=== PATIENT | male | born 1990 | race Caucasian/White ===

== ENCOUNTER 2016-11-23 15:16 | Emergency (ER) | payer OTHER ==
[2016-11-23] MEDS ORDERED: KETOROLAC 30 MG/ML VIAL (J1885) As Ordered ONE (17:15)
--- NOTE | 2016-11-23 18:30 | REPUSA ---
CLINICAL HISTORY: pain. TECHNIQUE: Realtime sonographic images were obtained in multiple projections through bilateral inguin al areas. COMMENTS: There is no evidence of inguinal hernia on the right or left. There is no soft tisse mass or fluid collection noted. IMPRESSION: There is no evidence of inguinal hernia on the right or left. Thank you for your kind referral of this patient.
--- NOTE | 2016-11-23 18:50 | REPUSA ---
CLINICAL HISTORY: Rule out torsion. TECHNIQUE: Realtime sonographic images were obtained in multiple projections. COMMENTS: Both testicles are of normal size and shape and are of homogeneous echotexture. The right testicle m easures 4.7 cm in CC x 2.36 cm in AP x 3.73 cm in transverse. The right epididymal head 12.7 mm. The left testicle measures 4.54 cm in CC x 2.61 cm in AP x 3.49 cm in transverse. Left epididymal head measures 9.5 mm. Color Doppler images reveal normal symmetrical flow to the testicles. There is no evidence for testi cular torsion. There is no evidence of varicocele or hydrocele. The right RI is 0.40, PSV 4.0, EDV 1.6. The left RI is 0.63, PSV 4.8, EDV 1.8. IMPRESSION: 1. Right epididymal cyst measuring 3.8 x 2.3 x 3.0 mm. 2. Bilateral testicles are within normal limits. No torsion. 3. Bilateral small hydrocele. Thank you for your kind referral of this patient. We appreciate the opportunity to participate in thi s patient's care.
--- NOTE | 2016-11-23 20:24 | EDDOCDS ---
Physician Documentation [facility] Name: Geovanni Nieto Age: 26 yrs Sex: Male : 1990 Arrival Date: 11/23/2016 Time: 15:16 Bed TR7 Private MD: Kwame Olivier D Disposition: 11/23/16 20:02 Discharged to Home/Self Care. Impression: Orchitis, Cyst of epididymis - RIGHT, Hydrocele, unspecified - BILATERAL. - Condition is Stable. - Discharge Instructions: Orchitis, Epidermal Cyst. - Prescriptions for Ibuprofen 600 mg Oral Tablet - take 1 tablet by ORAL route every 6 hours As needed take with food; 30 tablet. - Medication Reconciliation, Local Pharmacy Hours form. - Follow up: Sage Hassan; When: 1 week; Reason: Recheck today's complaints, Continuance of care. - Problem is new. - Symptoms have improved. - Notes: USE MOTRIN INSTRUCTED, USE SUPPORTIVE UNDER GARMENTS FOR SCROTAL SUPPORT, FOLLOW UP WITH YOUR DOCTOR OR DR HASSAN, RETURN TO THE ER IF THE SYMPTOMS WORSEN OR BECOME CONCERNING Historical: - Allergies: no known allergies; - Home Meds: 1. none - PMHx: none; - PSHx: none; - Social history: Smoking status: Patient states was never smoker of tobacco. No barriers to communication noted, The patient speaks fluent Burundian. - Family history: Not pertinent. - : The pt / caregiver states he / she is not on anticoagulants. Home medication list is obtained from the patient. - Exposure Risk Screening:: None identified. Vital Signs: 11/23 15:18 BP 114 / 63; Pulse 93; Resp 18 S; Temp 98.0(O); Pulse Ox 100% on R/A; Weight 65.77 kg / dd6 145 lbs (R); Height 5 ft. 8 in. (172.72 cm) (R); 20:06 BP 122 / 65; Pulse 83; Resp 18; Temp 97.8(T); Pulse Ox 99% on R/A; Pain 4/10; ar3 15:18 Body Mass Index 22.05 (65.77 kg, 172.72 cm) dd6 MDM: 17:09 Financial registration complete. kf3 17:14 ketorolac 60 mg IM once ordered. jk8 17:15 Scrotal, US Ordered. EDMS 17:29 [facility] Payment Agreement was scanned into [email or web address] and attached to record. kf3 17:39 Pelvis, limited US Ordered. EDMS 17:39 DUPLEX SCAN LIMITED (DOPPLER) Ordered. EDMS 18:53 ED course: PREVIOUS PROVIDER DID NOT ORDER URINALYSIS, URINE CULTURE OR GC/CHLAMYDIA ck7 PROBE. WILL ORDER AND AWAIT RESULTS TO R/O INFECTION. 18:53 UA Ordered. EDMS 18:53 Urine Culture Ordered. EDMS 18:53 GC & Chlamydia Amplification Ordered. EDMS 19:23 Scrotal, US Reviewed. ck7 19:23 Pelvis, limited US Reviewed. ck7 19:26 UA Reviewed. ck7 Administered Medications: 17:19 Drug: ketorolac 60 mg [ketorolac 30 mg/mL (1 mL) injection solution (2 mL)] Route: IM; jo3 Site: left gluteus; Signatures: Dispatcher [employer] EDMS Abelino Watsno, Cee Alanis RN, RN RN jo3 Julio Wilder, Reg Reg kf3 Alla Bower RN RN rs3 Ronald Gutierrez, RPA-C RPA-Cck7 Kyaw Neely, PA-C PA-C jk8 The chart was reviewed and I authenticate all verbal orders and agree with the evaluation and treatment provided.Corrections: (The following items were deleted from the chart) 17:39 17:14 Abdomen, limited+US ordered. EDMS EDMS Attachments: 17:29 [facility] Payment Agreement kf3 MTDD
--- NOTE | 2016-11-23 20:24 | EDDOCDS ---
Nurse's Notes [facility] Name: Geovanni Nieto Age: 26 yrs Sex: Male : 1990 Arrival Date: 11/23/2016 Time: 15:16 Bed TR7 Private MD: Kwame Olivier D Diagnosis: Orchitis;Cyst of epididymis-RIGHT;Hydrocele, unspecified-BILATERAL Presentation: 11/23 15:24 Presenting complaint: Patient states: Left testicle swelling and tenderness since rs3 yesterday. not resolved with ice application. Adult Sepsis Screening: The patient does not have new or worsening altered mentation. Patient's respiratory rate is less than 22. Systolic blood pressure is greater than 100. Patient has a qSOFA score of 0- Negative Sepsis Screen. Suicide/Homicide risk assessment- the patient denies having any suicidal and/or homicidal ideations and does not present with any other emotional, behavioral or mental health complaints. Status: Patient is not a guest services lead or dependent. Transition of care: patient was not received from another setting of care. 15:24 Acuity: EMILIO Level 3 rs3 15:24 Method Of Arrival: Walkin/Carried/Asstd rs3 Triage Assessment: 15:27 General: Appears in no apparent distress. Pain: Location: groin. Pt Declines HIV rs3 testing. Historical: - Allergies: no known allergies; - Home Meds: 1. none - PMHx: none; - PSHx: none; - Social history: Smoking status: Patient states was never smoker of tobacco. No barriers to communication noted, The patient speaks fluent Thai. - Family history: Not pertinent. - : The pt / caregiver states he / she is not on anticoagulants. Home medication list is obtained from the patient. - Exposure Risk Screening:: None identified. Screenin:19 Screening information is obtained from the patient. Fall risk: No risks identified. jo3 Assistance ADL's: requires no assistance with activities of daily living. Abuse/DV Screen: The patient / caregiver reports he/she is: not in a situation that causes fear, pain or injury. Nutritional screening: No deficits noted. Advance Directives: There is no active DNR order. home support is adequate. Assessment: 17:19 General: Appears uncomfortable, Behavior is appropriate for age, cooperative. jo3 Neurological: No deficits noted. Cardiovascular: No deficits noted. Respiratory: Airway is patent Respiratory effort is even, unlabored, Derm: Skin is pink, warm & dry. Vital Signs: 15:18 BP 114 / 63; Pulse 93; Resp 18 S; Temp 98.0(O); Pulse Ox 100% on R/A; Weight 65.77 kg dd6 (R); Height 5 ft. 8 in. (172.72 cm) (R); 20:06 BP 122 / 65; Pulse 83; Resp 18; Temp 97.8(T); Pulse Ox 99% on R/A; Pain 4/10; ar3 15:18 Body Mass Index 22.05 (65.77 kg, 172.72 cm) dd6 Vitals: 15:18 Log In Time: November 23, 2016 at 15:16. dd6 ED Course: 15:18 Patient visited by Garret aBrtholomew PCA. dd6 15:18 Kwame Olivier is Private Physician. dd6 15:18 Patient moved to Waiting dd6 15:19 Patient moved to Pre RCE dd6 15:27 Triage Initiated rs3 16:35 Patient moved to Triage 3 ar3 16:36 Patient visited by Delia Obrien RN. dls 17:08 Kyaw Neely PA-C is [facility]. jk8 17:08 Bo Larios MD is Attending Physician. jk8 17:08 Patient visited by Kyaw Neely PA-C. jk8 17:18 Patient moved to TR1 ar3 17:19 The patient / caregiver is instructed regarding the plan of care and ED course. jo3 17:20 Patient visited by Cee Baum RN. jo3 17:28 Patient name changed from Geovanni\S\W\S\Nieto\S\ to Geovanni\S\Gatica\S\Nieto. EDMS 17:29 [place] [place] was scanned into [employer] and attached to record. kf3 17:34 Patient moved to [facility] hgl 18:01 [facility] role handed off by Kyaw Neely PA-C ck7 18:01 Ronald Gutierrez RPA-C is [facility]. ck7 18:10 Patient moved to TR1 hgl 18:22 Patient visited by Ronald Gutierrez RPA-C. ck7 18:34 Scrotal, US Returned. EDMS 18:54 Patient visited by Ronald Gutierrez RPA-C. ck7 18:59 GC & Chlamydia Amplification Sent. ar3 18:59 Urine Culture Sent. ar3 18:59 UA Sent. ar3 19:18 Pelvis, limited US Returned. EDMS 19:25 Patient visited by Ronald Gutierrez RPA-C. ck7 19:54 Patient moved to rs3 20:00 Patient visited by Ronald Gutierrez RPA-C. ck7 20:02 Sage Hassan is Referral Physician. ck7 20:06 Patient visited by Liza Galindo PCA. ar3 20:21 Patient moved to [facility] ar3 20:23 No IV's were initiated during this patient's visit. No procedures done that require cz assistance. Administered Medications: 17:19 Drug: ketorolac 60 mg [ketorolac 30 mg/mL (1 mL) injection solution (2 mL)] Route: IM; jo3 Site: left gluteus; Order Results: Lab Order: UA; SPEC'M 11/23/16 18:59 Test: APPEARANCE, URINE; Value: HAZY; Range: CLEAR; Status: F Test: COLOR, URINE; Value: YELLOW; Range: YELLOW; Status: F Test: PH,URINE; Value: 7.0; Range: 5.0-9.0; Units: UNITS; Status: F Test: SPECIFIC GRAVITY URINE AUTO; Value: 1.015; Range: 1.002-1.035; Status: F Test: PROTEIN, URINE AUTO; Value: NEGATIVE; Range: NEGATIVE; Units: mg/dL; Status: F Test: GLUCOSE, URINE (UA) AUTO; Value: NEGATIVE; Range: NEGATIVE; Units: mg/dL; Status: F Test: KETONE, URINE AUTO; Value: NEGATIVE; Range: NEGATIVE; Units: mg/dL; Status: F Test: UROBILINOGEN, URINE AUTO; Value: 0.2; Range: 0.0-2.0; Units: mg/dL; Status: F Test: BILIRUBIN, URINE AUTO; Value: NEGATIVE; Range: NEGATIVE; Status: F Test: NITRITE, URINE AUTO; Value: NEGATIVE; Range: NEGATIVE; Status: F Test: LEUKOCYTE ESTERASE, URINE AUTO; Value: NEGATIVE; Range: NEGATIVE; Status: F Test: BLOOD, URINE BLOOD; Value: NEGATIVE; Range: NEGATIVE; Status: F Test: WBC, URINE AUTO; Value: 0; Range: 0-3; Units: /HPF; Status: F Test: RBC, URINE AUTO; Value: 1; Range: 0-3; Units: /HPF; Status: F Test: BACTERIA, URINE AUTO; Value: NEGATIVE; Range: NEGATIVE; Status: F Test: SQUAMOUS EPITHELIAL CELL UR AU; Value: 0; Range: 0-6; Units: /HPF; Status: F Test: SPERM, URINE AUTO; Value: SMALL; Range: NONE; Abnormal: Above high normal; Status: F Test: HYALINE CAST, URINE AUTO; Value: 0; Range: 0-1; Units: /LPF; Status: F Test: AMORPHOUS SEDIMENT; Value: SMALL; Range: NEGATIVE; Abnormal: Above high normal; Status: F Radiology Order: Scrotal, US Test: Scrotal, US REASON FOR EXAMINATION: rule out torsion.; ; CLINICAL HISTORY: pain.; TECHNIQUE: Realtime sonographic images were obtained in multiple projections through bilateral inguin; al areas.; COMMENTS:; There is no evidence of inguinal hernia on the right or left.; There is no soft tisse mass or fluid collection noted.; IMPRESSION:; There is no evidence of inguinal hernia on the right or left.; Thank you for your kind referral of this patient.; ; Radiology Order: Pelvis, limited US Test: Pelvis, limited US REASON FOR EXAMINATION: rule out INGUINAL HERNIA; ; CLINICAL HISTORY: Rule out torsion.; ; TECHNIQUE: Realtime sonographic images were obtained in multiple projections.; ; COMMENTS:; Both testicles are of normal size and shape and are of homogeneous echotexture. The right testicle m; easures 4.7 cm in CC x 2.36 cm in AP x 3.73 cm in transverse. The right epididymal head 12.7 mm. The; left testicle measures 4.54 cm in CC x 2.61 cm in AP x 3.49 cm in transverse. Left epididymal head; measures 9.5 mm.; ; Color Doppler images reveal normal symmetrical flow to the testicles. There is no evidence for testi; cular torsion. There is no evidence of varicocele or hydrocele.; ; The right RI is 0.40, PSV 4.0, EDV 1.6. The left RI is 0.63, PSV 4.8, EDV 1.8.; ; IMPRESSION:; 1. Right epididymal cyst measuring 3.8 x 2.3 x 3.0 mm.; 2. Bilateral testicles are within normal limits. No torsion.; 3. Bilateral small hydrocele.; ; Thank you for your kind referral of this patient. We appreciate the opportunity to participate in [facility]; s patient's care.; ; ; Outcome: 20:02 Discharge ordered by Provider. ck7 20:23 Discharge Assessment: Patient awake, alert and oriented x 3. No cognitive and/or cz functional deficits noted. Patient verbalized understanding of disposition instructions. patient administered narcotics - no. The following High Risk Discharge criteria are identified: None. Discharged to home ambulatory. Condition: stable. Discharge instructions given to patient, Instructed on discharge instructions, follow up and referral plans. medication usage, Demonstrated understanding of instructions, medications, Pt was receptive of discharge instructions/ teaching. Prescriptions given X 1. Ultrasound Study completed. Property :Personal belongings accompany Pt. 20:23 Patient left the ED. cz Signatures: Dispatcher [employer] EDMS Delia Obrien RN Abelino Rodney RN RN cz Helmerci, Jennifer, RN RN jo3 Julio Wilder, Reg Reg kf3 Garret Bartholomew, RAND BUTTER RAND BUTTER dd6 Alla BowerRN RN rs3 Liza Galindo, RAND BUTTER RAND BUTTER ar3 Dorota, [place] hgl Ronald Gutierrez, RPA-C RPA-Cck7 Kyaw Neely, PA-C PA-C jk8 MTDD
--- NOTE | 2016-11-25 21:24 | EDDOCDS ---
Physician Documentation [facility] Name: Geovanni Nieto Age: 26 yrs Sex: Male : 1990 Arrival Date: 11/23/2016 Time: 15:16 Bed TR7 Private MD: Kwame Olivier D Disposition: 11/23/16 20:02 Discharged to Home/Self Care. Impression: Orchitis, Cyst of epididymis - RIGHT, Hydrocele, unspecified - BILATERAL. - Condition is Stable. - Discharge Instructions: Orchitis, Epidermal Cyst. - Prescriptions for Ibuprofen 600 mg Oral Tablet - take 1 tablet by ORAL route every 6 hours As needed take with food; 30 tablet. - Medication Reconciliation, Local Pharmacy Hours form. - Follow up: Sage Hassan; When: 1 week; Reason: Recheck today's complaints, Continuance of care. - Problem is new. - Symptoms have improved. - Notes: USE MOTRIN INSTRUCTED, USE SUPPORTIVE UNDER GARMENTS FOR SCROTAL SUPPORT, FOLLOW UP WITH YOUR DOCTOR OR DR HASSAN, RETURN TO THE ER IF THE SYMPTOMS WORSEN OR BECOME CONCERNING Historical: - Allergies: no known allergies; - Home Meds: 1. none - PMHx: none; - PSHx: none; - Social history: Smoking status: Patient states was never smoker of tobacco. No barriers to communication noted, The patient speaks fluent German. - Family history: Not pertinent. - : The pt / caregiver states he / she is not on anticoagulants. Home medication list is obtained from the patient. - Exposure Risk Screening:: None identified. Vital Signs: 11/23 15:18 BP 114 / 63; Pulse 93; Resp 18 S; Temp 98.0(O); Pulse Ox 100% on R/A; Weight 65.77 kg / dd6 145 lbs (R); Height 5 ft. 8 in. (172.72 cm) (R); 20:06 BP 122 / 65; Pulse 83; Resp 18; Temp 97.8(T); Pulse Ox 99% on R/A; Pain 4/10; ar3 15:18 Body Mass Index 22.05 (65.77 kg, 172.72 cm) dd6 MDM: 17:09 Financial registration complete. kf3 17:14 ketorolac 60 mg IM once ordered. jk8 17:15 Scrotal, US Ordered. EDMS 17:29 [facility] Payment Agreement was scanned into [employer] and attached to record. kf3 17:39 Pelvis, limited US Ordered. EDMS 17:39 DUPLEX SCAN LIMITED (DOPPLER) Ordered. EDMS 18:53 ED course: PREVIOUS PROVIDER DID NOT ORDER URINALYSIS, URINE CULTURE OR GC/CHLAMYDIA ck7 PROBE. WILL ORDER AND AWAIT RESULTS TO R/O INFECTION. 18:53 UA Ordered. EDMS 18:53 Urine Culture Ordered. EDMS 18:53 GC & Chlamydia Amplification Ordered. EDMS 19:23 Scrotal, US Reviewed. ck7 19:23 Pelvis, limited US Reviewed. ck7 19:26 UA Reviewed. ck7 22:04 T-Sheet-- Draft Copy was scanned into [employer] and attached to record. klr 11/24 11:28 Radiology Report was scanned into [employer] and attached to record. gb Administered Medications: 11/23 17:19 Drug: ketorolac 60 mg [ketorolac 30 mg/mL (1 mL) injection solution (2 mL)] Route: IM; jo3 Site: left gluteus; Signatures: Dispatcher [employer] EDMS Abelino Watson, RN RN cz Ynes Meyer, Reg Reg gb Cee Baum RN RN jo3 Julio Wilder, Reg Reg kf3 Alla Bower RN RN rs3 Ronald Gutierrez, RPA-C RPA-Cck7 Kyaw Neely, PA-C PA-C jk8 Donna Silva The chart was reviewed and I authenticate all verbal orders and agree with the evaluation and treatment provided.Corrections: (The following items were deleted from the chart) 17:39 17:14 Abdomen, limited+US ordered. EDMS EDMS Attachments: 17:29 [place] [place] Payment Agreement kf3 22:04 T-Sheet-- Draft Copy klr Chart Complete MTDD
--- NOTE | 2016-11-25 21:24 | EDDOCDS ---
Physician Documentation [facility] Name: Geovanni Nieto Age: 26 yrs Sex: Male : 1990 Arrival Date: 11/23/2016 Time: 15:16 Bed TR7 Private MD: Kwame Olivier D Disposition: 11/23/16 20:02 Discharged to Home/Self Care. Impression: Orchitis, Cyst of epididymis - RIGHT, Hydrocele, unspecified - BILATERAL. - Condition is Stable. - Discharge Instructions: Orchitis, Epidermal Cyst. - Prescriptions for Ibuprofen 600 mg Oral Tablet - take 1 tablet by ORAL route every 6 hours As needed take with food; 30 tablet. - Medication Reconciliation, Local Pharmacy Hours form. - Follow up: Sage Hassan; When: 1 week; Reason: Recheck today's complaints, Continuance of care. - Problem is new. - Symptoms have improved. - Notes: USE MOTRIN INSTRUCTED, USE SUPPORTIVE UNDER GARMENTS FOR SCROTAL SUPPORT, FOLLOW UP WITH YOUR DOCTOR OR DR HASSAN, RETURN TO THE ER IF THE SYMPTOMS WORSEN OR BECOME CONCERNING Historical: - Allergies: no known allergies; - Home Meds: 1. none - PMHx: none; - PSHx: none; - Social history: Smoking status: Patient states was never smoker of tobacco. No barriers to communication noted, The patient speaks fluent Tanzanian. - Family history: Not pertinent. - : The pt / caregiver states he / she is not on anticoagulants. Home medication list is obtained from the patient. - Exposure Risk Screening:: None identified. Vital Signs: 11/23 15:18 BP 114 / 63; Pulse 93; Resp 18 S; Temp 98.0(O); Pulse Ox 100% on R/A; Weight 65.77 kg / dd6 145 lbs (R); Height 5 ft. 8 in. (172.72 cm) (R); 20:06 BP 122 / 65; Pulse 83; Resp 18; Temp 97.8(T); Pulse Ox 99% on R/A; Pain 4/10; ar3 15:18 Body Mass Index 22.05 (65.77 kg, 172.72 cm) dd6 MDM: 17:09 Financial registration complete. kf3 17:14 ketorolac 60 mg IM once ordered. jk8 17:15 Scrotal, US Ordered. EDMS 17:29 [facility] Agreement was scanned into [employer] and attached to record. kf3 17:39 Pelvis, limited US Ordered. EDMS 17:39 DUPLEX SCAN LIMITED (DOPPLER) Ordered. EDMS 18:53 ED course: PREVIOUS PROVIDER DID NOT ORDER URINALYSIS, URINE CULTURE OR GC/CHLAMYDIA ck7 PROBE. WILL ORDER AND AWAIT RESULTS TO R/O INFECTION. 18:53 UA Ordered. EDMS 18:53 Urine Culture Ordered. EDMS 18:53 GC & Chlamydia Amplification Ordered. EDMS 19:23 Scrotal, US Reviewed. ck7 19:23 Pelvis, limited US Reviewed. ck7 19:26 UA Reviewed. ck7 22:04 T-Sheet-- Draft Copy was scanned into [employer] and attached to record. klr 11/24 11:28 Radiology Report was scanned into [employer] and attached to record. gb Administered Medications: 11/23 17:19 Drug: ketorolac 60 mg [ketorolac 30 mg/mL (1 mL) injection solution (2 mL)] Route: IM; jo3 Site: left gluteus; Signatures: Dispatcher [employer] EDMS Abelino Watson, RN RN cz Ynes Meyer, Reg Reg gb Cee Baum RN RN jo3 Julio Wilder, Reg Reg kf3 Alla Bower RN RN rs3 Ronald Gutierrez, RPA-C RPA-Cck7 Kyaw Neely, PA-C PA-C jk8 Donna Silva The chart was reviewed and I authenticate all verbal orders and agree with the evaluation and treatment provided.Corrections: (The following items were deleted from the chart) 17:39 17:14 Abdomen, limited+US ordered. EDMS EDMS Attachments: 17:29 [place] [place] Agreement kf3 22:04 T-Sheet-- Draft Copy klr Chart Complete MTDD
--- NOTE | 2016-11-25 21:24 | EDDOCDS ---
Nurse's Notes [facility] Name: Geovanni Nieto Age: 26 yrs Sex: Male : 1990 Arrival Date: 11/23/2016 Time: 15:16 Bed TR7 Private MD: Kwame Olivier D Diagnosis: Orchitis;Cyst of epididymis-RIGHT;Hydrocele, unspecified-BILATERAL Presentation: 11/23 15:24 Presenting complaint: Patient states: Left testicle swelling and tenderness since rs3 yesterday. not resolved with ice application. Adult Sepsis Screening: The patient does not have new or worsening altered mentation. Patient's respiratory rate is less than 22. Systolic blood pressure is greater than 100. Patient has a qSOFA score of 0- Negative Sepsis Screen. Suicide/Homicide risk assessment- the patient denies having any suicidal and/or homicidal ideations and does not present with any other emotional, behavioral or mental health complaints. 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 Transition of care: patient was not received from another setting of care. 15:24 Acuity: EMILIO Level 3 rs3 15:24 Method Of Arrival: Walkin/Carried/Asstd rs3 Triage Assessment: 15:27 General: Appears in no apparent distress. Pain: Location: groin. Pt Declines HIV rs3 testing. Historical: - Allergies: no known allergies; - Home Meds: 1. none - PMHx: none; - PSHx: none; - Social history: Smoking status: Patient states was never smoker of tobacco. No barriers to communication noted, The patient speaks fluent Lithuanian. - Family history: Not pertinent. - : The pt / caregiver states he / she is not on anticoagulants. Home medication list is obtained from the patient. - Exposure Risk Screening:: None identified. Screenin:19 Screening information is obtained from the patient. Fall risk: No risks identified. jo3 Assistance ADL's: requires no assistance with activities of daily living. Abuse/DV Screen: The patient / caregiver reports he/she is: not in a situation that causes fear, pain or injury. Nutritional screening: No deficits noted. Advance Directives: There is no active DNR order. home support is adequate. Assessment: 17:19 General: Appears uncomfortable, Behavior is appropriate for age, cooperative. jo3 Neurological: No deficits noted. Cardiovascular: No deficits noted. Respiratory: Airway is patent Respiratory effort is even, unlabored, Derm: Skin is pink, warm & dry. Vital Signs: 15:18 BP 114 / 63; Pulse 93; Resp 18 S; Temp 98.0(O); Pulse Ox 100% on R/A; Weight 65.77 kg dd6 (R); Height 5 ft. 8 in. (172.72 cm) (R); 20:06 BP 122 / 65; Pulse 83; Resp 18; Temp 97.8(T); Pulse Ox 99% on R/A; Pain 4/10; ar3 15:18 Body Mass Index 22.05 (65.77 kg, 172.72 cm) dd6 Vitals: 15:18 Log In Time: November 23, 2016 at 15:16. dd6 ED Course: 15:18 Patient visited by Garret Bartholomew PCA. dd6 15:18 Kwame Olivier is Private Physician. dd6 15:18 Patient moved to Waiting dd6 15:19 Patient moved to Pre RCE dd6 15:27 Triage Initiated rs3 16:35 Patient moved to Triage 3 ar3 16:36 Patient visited by Delia Obrien RN. dls 17:08 Kyaw Neely PA-C is [facility]. jk8 17:08 Bo Larios MD is Attending Physician. jk8 17:08 Patient visited by Kyaw Neely PA-C. jk8 17:18 Patient moved to TR1 ar3 17:19 The patient / caregiver is instructed regarding the plan of care and ED course. jo3 17:20 Patient visited by Cee Baum RN. jo3 17:28 Patient name changed from Geovanni\S\W\S\Nieto\S\ to Geovanni\S\Gatica\S\Nieto. EDMS 17:29 [facility] Payment Agreement was scanned into [employer] and attached to record. kf3 17:34 Patient moved to [facility] hgl 18:01 [facility] role handed off by Kyaw Neely PA-C ck7 18:01 Ronald Gutierrez RPA-C is [facility]. ck7 18:10 Patient moved to TR1 hgl 18:22 Patient visited by Ronald Gutierrez RPA-C. ck7 18:34 Scrotal, US Returned. EDMS 18:54 Patient visited by Ronald Gutierrez RPA-C. ck7 18:59 GC & Chlamydia Amplification Sent. ar3 18:59 Urine Culture Sent. ar3 18:59 UA Sent. ar3 19:18 Pelvis, limited US Returned. EDMS 19:25 Patient visited by Ronald Gutierrez RPA-C. ck7 19:54 Patient moved to PR rs3 20:00 Patient visited by Ronald Gutierrez RPA-C. ck7 20:02 Sage Hassan is Referral Physician. ck7 20:06 Patient visited by Liza Galindo PCA. ar3 20:21 Patient moved to [facility] ar3 20:23 No IV's were initiated during this patient's visit. No procedures done that require cz assistance. 22:04 T-Sheet-- Draft Copy was scanned into [employer] and attached to record. klr 11/24 11:28 Radiology Report was scanned into [employer] and attached to record. gb Administered Medications: 11/23 17:19 Drug: ketorolac 60 mg [ketorolac 30 mg/mL (1 mL) injection solution (2 mL)] Route: IM; jo3 Site: left gluteus; Order Results: Lab Order: UA; SPEC'M 11/23/16 18:59 Test: APPEARANCE, URINE; Value: HAZY; Range: CLEAR; Status: F Test: COLOR, URINE; Value: YELLOW; Range: YELLOW; Status: F Test: PH,URINE; Value: 7.0; Range: 5.0-9.0; Units: UNITS; Status: F Test: SPECIFIC GRAVITY URINE AUTO; Value: 1.015; Range: 1.002-1.035; Status: F Test: PROTEIN, URINE AUTO; Value: NEGATIVE; Range: NEGATIVE; Units: mg/dL; Status: F Test: GLUCOSE, URINE (UA) AUTO; Value: NEGATIVE; Range: NEGATIVE; Units: mg/dL; Status: F Test: KETONE, URINE AUTO; Value: NEGATIVE; Range: NEGATIVE; Units: mg/dL; Status: F Test: UROBILINOGEN, URINE AUTO; Value: 0.2; Range: 0.0-2.0; Units: mg/dL; Status: F Test: BILIRUBIN, URINE AUTO; Value: NEGATIVE; Range: NEGATIVE; Status: F Test: NITRITE, URINE AUTO; Value: NEGATIVE; Range: NEGATIVE; Status: F Test: LEUKOCYTE ESTERASE, URINE AUTO; Value: NEGATIVE; Range: NEGATIVE; Status: F Test: BLOOD, URINE BLOOD; Value: NEGATIVE; Range: NEGATIVE; Status: F Test: WBC, URINE AUTO; Value: 0; Range: 0-3; Units: /HPF; Status: F Test: RBC, URINE AUTO; Value: 1; Range: 0-3; Units: /HPF; Status: F Test: BACTERIA, URINE AUTO; Value: NEGATIVE; Range: NEGATIVE; Status: F Test: SQUAMOUS EPITHELIAL CELL UR AU; Value: 0; Range: 0-6; Units: /HPF; Status: F Test: SPERM, URINE AUTO; Value: SMALL; Range: NONE; Abnormal: Above high normal; Status: F Test: HYALINE CAST, URINE AUTO; Value: 0; Range: 0-1; Units: /LPF; Status: F Test: AMORPHOUS SEDIMENT; Value: SMALL; Range: NEGATIVE; Abnormal: Above high normal; Status: F Lab Order: Urine Culture; SPEC'M 11/23/16 18:59 Test: URINE CULTURE; Value: URINE CULTURE RESULT NO GROWTH; Status: F Lab Order: GC & Chlamydia Amplification; SPEC'M 11/23/16 18:59 Test: CHLAMYDIA DNA AMPLIFICATION; Value: NEGATIVE; Range: NEGATIVE; Status: F Test: GC DNA AMPLIFICATION; Value: NEGATIVE; Range: NEGATIVE; Status: F Radiology Order: Scrotal, US Test: Scrotal, US REASON FOR EXAMINATION: rule out torsion.; ; CLINICAL HISTORY: pain.; TECHNIQUE: Realtime sonographic images were obtained in multiple projections through bilateral inguin; al areas.; COMMENTS:; There is no evidence of inguinal hernia on the right or left.; There is no soft tisse mass or fluid collection noted.; IMPRESSION:; There is no evidence of inguinal hernia on the right or left.; Thank you for your kind referral of this patient.; ; Radiology Order: Pelvis, limited US Test: Pelvis, limited US REASON FOR EXAMINATION: rule out INGUINAL HERNIA; ; CLINICAL HISTORY: Rule out torsion.; ; TECHNIQUE: Realtime sonographic images were obtained in multiple projections.; ; COMMENTS:; Both testicles are of normal size and shape and are of homogeneous echotexture. The right testicle m; easures 4.7 cm in CC x 2.36 cm in AP x 3.73 cm in transverse. The right epididymal head 12.7 mm. The; left testicle measures 4.54 cm in CC x 2.61 cm in AP x 3.49 cm in transverse. Left epididymal head; measures 9.5 mm.; ; Color Doppler images reveal normal symmetrical flow to the testicles. There is no evidence for testi; cular torsion. There is no evidence of varicocele or hydrocele.; ; The right RI is 0.40, PSV 4.0, EDV 1.6. The left RI is 0.63, PSV 4.8, EDV 1.8.; ; IMPRESSION:; 1. Right epididymal cyst measuring 3.8 x 2.3 x 3.0 mm.; 2. Bilateral testicles are within normal limits. No torsion.; 3. Bilateral small hydrocele.; ; Thank you for your kind referral of this patient. We appreciate the opportunity to participate in [facility]; s patient's care.; ; ; Outcome: 20:02 Discharge ordered by Provider. ck7 20:23 Discharge Assessment: Patient awake, alert and oriented x 3. No cognitive and/or cz functional deficits noted. Patient verbalized understanding of disposition instructions. patient administered narcotics - no. The following High Risk Discharge criteria are identified: None. Discharged to home ambulatory. Condition: stable. Discharge instructions given to patient, Instructed on discharge instructions, follow up and referral plans. medication usage, Demonstrated understanding of instructions, medications, Pt was receptive of discharge instructions/ teaching. Prescriptions given X 1. Ultrasound Study completed. Property :Personal belongings accompany Pt. 20:23 Patient left the ED. cz Signatures: Dispatcher [employer] EDMS Delia Obrien RN RN dls Zecher, Calvin, RN RN cz Ynes Meyer, Reg Reg gb Cee Baum RN RN jo3 Julio Wilder, Reg Reg kf3 Garret Bartholomew, TRANSIT COACH OPERATOR TRANSIT COACH OPERATOR dd6 Alla Bower RN RN rs3 Liza Galindo, TRANSIT COACH OPERATOR TRANSIT COACH OPERATOR ar3 Ly, [place] hgl Ronald Gutierrez, RPA-C RPA-[id number] Kyaw Neely, PA-C PA-C jk8 Donna Silva Chart Complete MTDD
== END 2016-11-23 20:23 | disposition home or self-care (01) ==
LOC: M ED 15:16
DX: N45.2 Orchitis (principal); N43.3 Hydrocele, unspecified; N50.3 Cyst of epididymis
CPT/HCPCS: 76857; 76870; 81001; 87086; 87491; 87591; 93976; 96372; 99284; J1885

== ENCOUNTER → 2017-12-05 | Outpatient (CLI) | payer OTHER | LOC: M WUC 10:17 | DX: S63.501A Unspecified sprain of right wrist, initial encounter (principal); X58.XXXA Exposure to other specified factors, initial encounter; Y92.89 Other specified places as the place of occurrence of the external cause | CPT/HCPCS: 73110 ==

== ENCOUNTER 2018-11-29 12:13 | Emergency (ER) | payer OTHER ==
[~2018-11-29] VITALS: Ht 172.7 cm; Wt 68.2 kg
[2018-11-29 12:13] VITALS: BP 142/76
[2018-11-29] MEDS ORDERED: AUGM875T28 PO (12:56)
== END 2018-11-29 13:09 | disposition home or self-care (01) ==
LOC: M ED 12:13
DX: S50.871A Other superficial bite of right forearm, initial encounter (principal); W54.0XXA Bitten by dog, initial encounter; Y92.009 Unspecified place in unspecified non-institutional (private) residence as the place of occurrence of the external cause; Y93.89 Activity, other specified

== ENCOUNTER 2019-07-28 20:00 | Emergency (ER) | payer OTHER ==
[~2019-07-28] VITALS: Ht 172.7 cm; Wt 65.9 kg
[~2019-07-28 20:00] MED LIST: AUGM875T28 PO
[2019-07-28 21:11] LABS: CK-MB VALUE MASS 6.4 NG/ML (<3.6); CPK CREATINE PHOSPHOKINASE 489 U/L (39-308); MB/CK RELATIVE INDEX 1.31 (< OR =4); TROPONIN I < 0.02 NG/ML (< 0.10)
--- NOTE | 2019-07-28 21:47 | ECGEPIP ---
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
[2019-07-28 21:49] VITALS: BP 120/69
== END 2019-07-28 21:51 | disposition home or self-care (01) ==
LOC: M ED 20:00 → EDBD 20:00 → M ED 21:51
DX: F10.129 Alcohol abuse with intoxication, unspecified (principal); Y90.1 Blood alcohol level of 20-39 mg/100 ml; F11.10 Opioid abuse, uncomplicated; F17.210 Nicotine dependence, cigarettes, uncomplicated
CPT/HCPCS: 36415; 82550; 82553; 84484; 93005; 99284; G0480

== ENCOUNTER → 2019-12-23 | Outpatient (REF) | payer OTHER, SELFPAY ==
[2019-12-23 11:30] LABS: BASO # 0.1 10^3/uL (0.0-0.2); BASO % 1.4 % (0.0-1.0); EOS # 0.2 10^3/uL (0.0-0.5); EOS % 4.8 % (0.0-3.0); HEMATOCRIT 47.4 % (42.0-52.0); HEMOGLOBIN 16.2 g/dl (13.5-17.5); LYMPH # 1.7 10^3/uL (1.5-5.0); LYMPH % 34.7 % (24.0-44.0); MEAN CORPUSCULAR HEMOGLOBIN 30.2 pg (27.0-33.0); MEAN CORPUSCULAR HGB CONC 34.2 g/dl (32.0-36.5); MEAN CORPUSCULAR VOLUME 88.4 fl (80.0-96.0); MONO # 0.6 10^3/uL (0.0-0.8); MONO % 11.5 % (0.0-5.0); NEUTROPHILS # 2.3 10^3/uL (1.5-8.5); NEUTROPHILS % 46.4 % (36.0-66.0); PLATELET COUNT, AUTOMATED 269 10^3/uL (150-450); RED BLOOD COUNT 5.36 10^6/uL (4.30-6.10)
[2019-12-23 12:11] LABS: ALBUMIN 4.4 GM/DL (3.2-5.2); ALT/SGPT 27 U/L (12-78); BILIRUBIN,TOTAL 0.9 MG/DL (0.2-1.0); BLOOD UREA NITROGEN 17 MG/DL (7-18); CALCIUM LEVEL 9.3 MG/DL (8.5-10.1); CARBON DIOXIDE LEVEL 30 MEQ/L (21-32); CHLORIDE LEVEL 103 MEQ/L (98-107); CREATININE FOR GFR 0.97 MG/DL (0.70-1.30); GLOMERULAR FILTRATION RATE > 60.0 (>60); GLUCOSE, FASTING 85 MG/DL (70-100); POTASSIUM SERUM 5.5 MEQ/L (3.5-5.1); SODIUM LEVEL 140 MEQ/L (136-145); THYROID STIMULATING HORMONE 0.775 uIU/ML (0.358-3.740); TOTAL PROTEIN 7.5 GM/DL (6.4-8.2)
== END ==
LOC: M SFHCCLAY 09:32
PROVIDERS: ATTEND Family Medicine
DX: R25.1 Tremor, unspecified (principal)

== ENCOUNTER 2022-04-21 15:37 | Emergency (ER) | payer OTHER ==
[~2022-04-21] VITALS: Ht 172.7 cm; Wt 64.6 kg
[2022-04-21 15:37] VITALS: BP 128/85
[2022-04-21] MEDS ORDERED: BOOSTRIX/ADACEL VACCINE (DIPHTH/PERTUSS/ACELL/TETANUS) 0.5ML SYR IM ONE (16:45)
== END 2022-04-21 17:29 | disposition home or self-care (01) ==
LOC: M ED 15:37
DX: S01.01XA Laceration without foreign body of scalp, initial encounter (principal); W22.8XXA Striking against or struck by other objects, initial encounter; Y92.89 Other specified places as the place of occurrence of the external cause; Y99.0 Civilian activity done for income or pay

== ENCOUNTER → 2022-10-17 | Outpatient (REF) | payer OTHER ==
[2022-10-17 17:40] LABS: HEMATOCRIT 46.4 % (42.0-52.0); MEAN CORPUSCULAR HEMOGLOBIN 31.2 pg (27.0-33.0); MEAN CORPUSCULAR HGB CONC 34.5 g/dl (32.0-36.5); MEAN CORPUSCULAR VOLUME 90.4 fl (80.0-96.0); PLATELET COUNT, AUTOMATED 286 10^3/uL (150-450); RED BLOOD COUNT 5.13 10^6/uL (4.30-6.10); WHITE BLOOD COUNT 6.2 10^3/uL (4.0-10.0)
[2022-10-17 18:06] LABS: ALBUMIN 3.9 G/DL (3.2-5.2); ALKALINE PHOSPHATASE 58 U/L (46-116); ALT/SGPT 31 U/L (7.0-40); AST/SGOT 26 U/L (<34); BILIRUBIN,TOTAL 0.7 MG/DL (0.3-1.2); BLOOD UREA NITROGEN 16 MG/DL (9-23); CALCIUM LEVEL 9.3 MG/DL (8.5-10.1); CARBON DIOXIDE LEVEL 30 MMOL/L (20-31); CHLORIDE LEVEL 104 MMOL/L (98-107); CREATININE FOR GFR 1.08 MG/DL (0.70-1.30); GLOMERULAR FILTRATION RATE > 60.0 (>60); GLUCOSE, FASTING 72 MG/DL (60-100); POTASSIUM SERUM 4.7 MMOL/L (3.5-5.1); SODIUM LEVEL 139 MMOL/L (136-145); TOTAL PROTEIN 6.8 G/DL (5.7-8.2)
== END ==
LOC: M SFHCCLAY 11:45
PROVIDERS: ATTEND Nurse Practitioner Family
DX: R30.0 Dysuria (principal)

== ENCOUNTER → 2022-10-22 | Outpatient (REF) | payer OTHER | LOC: M SFHCCLAY 13:48 | PROVIDERS: ATTEND Nurse Practitioner Family | DX: R30.0 Dysuria (principal) ==

== ENCOUNTER → 2022-10-24 | Outpatient (REF) | payer OTHER ==
[2022-10-24 13:42] LABS: APPEARANCE, URINE MANUAL CLEAR (CLEAR); COLOR, URINE MANUAL LT YELLOW (YELLOW)
[2022-10-24 13:43] LABS: BILIRUBIN, URINE MANUAL NEGATIVE (NEGATIVE); BLOOD URINE MANUAL NEGATIVE (NEGATIVE); GLUCOSE, URINE (UA) MANUAL NEGATIVE (NEGATIVE); KETONE, URINE MANUAL NEGATIVE (NEGATIVE); LEUKOCYTE ESTERASE, URINE MAN NEGATIVE (NEGATIVE); NITRITE, URINE MANUAL NEGATIVE (NEGATIVE); PROTEIN, URINE MANUAL NEGATIVE (NEGATIVE); SPECIFIC GRAVITY,URINE MANUAL 1.005 (1.002-1.035); UROBILINOGEN, URINE MANUAL NORMAL (NORMAL)
== END ==
LOC: M SMT 12:53
PROVIDERS: ATTEND Urology
DX: N41.0 Acute prostatitis (principal)

== ENCOUNTER → 2022-12-12 | Outpatient (REF) | payer OTHER ==
[2022-12-12 17:26] LABS: APPEARANCE, URINE MANUAL CLEAR (CLEAR); BILIRUBIN, URINE MANUAL NEGATIVE (NEGATIVE); BLOOD URINE MANUAL NEGATIVE (NEGATIVE); COLOR, URINE MANUAL YELLOW (YELLOW); GLUCOSE, URINE (UA) MANUAL NEGATIVE (NEGATIVE); KETONE, URINE MANUAL NEGATIVE (NEGATIVE); LEUKOCYTE ESTERASE, URINE MAN NEGATIVE (NEGATIVE); NITRITE, URINE MANUAL NEGATIVE (NEGATIVE); PROTEIN, URINE MANUAL NEGATIVE (NEGATIVE); UROBILINOGEN, URINE MANUAL NORMAL (NORMAL)
== END ==
LOC: M SMT 16:43
PROVIDERS: ATTEND Urology
DX: R30.0 Dysuria (principal)

== ENCOUNTER 2023-03-20 09:09 | Emergency (ER) | payer OTHER ==
[2023-03-20] MEDS ORDERED: AUGMENTIN 875 MG TAB PO ONE (11:15)
[2023-03-20] MEDS ORDERED: PERC5TAB12 PO (11:27)
[2023-03-20] MEDS ORDERED: AMOX875T2 PO (11:27)
[2023-03-20 11:35] VITALS: BP 164/98
== END 2023-03-20 11:38 | disposition home or self-care (01) ==
LOC: M ED 09:09
DX: S51.831A Puncture wound without foreign body of right forearm, initial encounter (principal); W54.0XXA Bitten by dog, initial encounter; Y92.410 Unspecified street and highway as the place of occurrence of the external cause; Y93.89 Activity, other specified